=== PATIENT | male | born 1995 | race African-American/Black ===

== ENCOUNTER 2019-08-21 14:49 | Emergency (ER) | payer OTHER ==
[2019-08-21] MEDS ORDERED: 0.9 % SODIUM CHLORIDE 1,000 ML BAG IV ONE (15:18)
[2019-08-21] MEDS ORDERED: PROCHLORPERAZINE 10 MG/2 ML VIAL IVP ONE (15:18)
[2019-08-21] MEDS ORDERED: DIPHENHYDRAMINE HCL 50 MG/ML VIAL IVP ONE (15:18)
[2019-08-21] MEDS ORDERED: KETOROLAC 30 MG/ML VIAL IVP ONE (15:18)
--- NOTE | 2019-08-21 15:24 | Emergency Department Record ---
History of Present Illness - General Chief Complaint: Headache Migraine Stated Complaint: MIGRAINE Time Seen by Provider: 08/21/19 15:09 Source: Patient, Family Mode of Arrival: Ambulatory Limitations: No limitations (Girlfriend/S.O.) - History of Present Illness Initial Comments: Pt to ED with complaint of a right sided headache for 7 days. Pain is located over right temporal area and associated with nausea without vomiting. He has no change in vision or weakness. No fever or illness, no travel, no new meds. Denies drug or alcohol, non smoker. In general good health without hx of frequent headaches. Was seen in Urgent Care and given IM Toradol and "something else" and "felt better for one day and SENIOR returned. Seen At [facility] ED and given IV meds with relief and sent home. SENIOR returned. No testing or imaging done to this point. SENIOR continues. Pt works for [employer] and is off due to Strike at this time. Onset/Timin -: Week(s) Onset Description: Gradual Location: Right, Temporal Severity: Moderate Quality: Aching, Throbbing Consistency: Constant Improves With: Nothing Worsens With: None Treatments Prior to Arrival: Prescription analgesic - Related Data Home Medications Medication Instructions Recorded Confirmed Last Taken Metoclopramide HCl [Reglan] 5 mg PO ASDIR 08/21/19 08/21/19 08/21/19 Ondansetron HCl [Zofran] 4 mg PO ASDIR 08/21/19 08/21/19 08/21/19 Previous Rx's Medication Instructions Recorded Cetirizine HCl/Pseudoephedrine 1 each PO BID PRN 10 Days #30 08/21/19 [Zyrtec-D Tablet] tab.er.12h Fluticasone Propionate [Flonase] 2 spray EACH NARES DAILY 7 Days #1 08/21/19 bottle Allergies Allergy/AdvReac Type Severity Reaction Status Date / Time No Known Drug Allergies Allergy Verified 08/21/19 14:59 Travel Screening - Travel/Exposure Within Last 30 Days Have you traveled within the last 30 days?: No - Travel/Exposure Within Last Year Have you traveled outside the [place] in the last year?: No - Additonal Travel Details Have you been exposed to anyone with a communicable illness?: No - Travel Symptoms Symptom Screening: None Review of Systems Constitutional: Denies: Chills, Fever, Night sweats Eyes: Denies: Eye discharge, Vision change ENT: Denies: Congestion, Ear pain, Throat pain Respiratory: Denies: Cough, Dyspnea Cardiovascular: Denies: Arrhythmia, Chest pain, Syncope Endocrine: Denies: Fatigue Gastrointestinal: Reports: Nausea. Denies: Abdominal pain, Diarrhea, Vomiting Genitourinary: Denies: Dysuria Musculoskeletal: Denies: Back pain Skin: Denies: Bruising, Rash Neurological: Reports: As per HPI Psychiatric: Denies: Anxiety, Suicidal thoughts Hematological/Lymphatic: Denies: Anemia Past Medical History - SOCIAL HISTORY Smoking Status: Never smoker Alcohol Use: None Drug Use: None - RESPIRATORY Hx Respiratory Disorders: No - CARDIOVASCULAR Hx Cardio Disorders: No - NEURO Hx Neuro Disorders: No - GI Hx GI Disorders: No - Hx Genitourinary Disorders: No - ENDOCRINE Hx Endocrine Disorders: No - MUSCULOSKELETAL Hx Musculoskeletal Disorders: No - PSYCH Hx Psych Problems: No - HEMATOLOGY/ONCOLOGY Hx Hematology/Oncology Disorders: No Family Medical History Any Significant Family History?: No Physical Exam - General General Appearance: Alert, Oriented x3, Cooperative, Moderate distress - Head Head exam: Atraumatic, Normal inspection - Eye Eye exam: Normal appearance, PERRL, EOMI - ENT ENT exam: Mucous membranes moist, Normal orophraynx, TM's normal bilaterally Ear exam: Normal external inspection Nasal Exam: Normal inspection Mouth exam: Normal external inspection - Neck Neck exam: Normal inspection, Full ROM. negative: Lymphadenopathy, Meningismus, Tenderness, Thyromegaly - Respiratory Respiratory exam: Normal lung sounds bilaterally. negative: Respiratory distress, Rhonchi, Wheezes - Cardiovascular Cardiovascular Exam: Regular rate, Normal rhythm, Normal heart sounds. negative: Tachycardia Peripheral Pulses: 2+: Radial (R), Radial (L) - GI/Abdominal GI/Abdominal exam: Soft, Normal bowel sounds. negative: Distended, Rigid, Tenderness - Extremities Extremities exam: Normal inspection. negative: Calf tenderness, Full ROM, Pedal edema, Tenderness - Back Back exam: Reports: Normal inspection. Denies: Paraspinal tenderness - Neurological Neurological exam: Alert, CN II-XII intact, Normal gait, Oriented X3 - Psychiatric Psychiatric exam: Normal affect, Normal mood - Skin Skin exam: Normal color. negative: Rash Course - Reevaluation(s) Reevaluation #1: 08/21/19 15:26 temporal recurrent- persistent SENIOR without evaluation. Will treat with IV meds and get lab and CT. Reevaluation #2: 08/21/19 16:42 CT Brain neg...only showing left frontal and maxillary sinusitis...SENIOR was right sided. At this time his SENIOR is resolved. He is up and walked to rest room with my escort. His gait is stable. Labs all normal with ESR 1. Due to the recurrent nature of his HAs and the migraine pattern Decadron 10mg given IV. Plan will be fore sinusitis treatments and referral to family doctor. Pt comfortable with plan. Medical Decision Making - Lab Data Result diagrams: 08/21/19 15:40 08/21/19 15:40 Disposition Disposition: Discharge Clinical Impression: Migraine Qualifiers: Status migrainosus presence: without status migrainosus Intractability: not intractable Sinusitis Qualifiers: Sinusitis location: maxillary Chronicity: acute Recurrence: non-recurrent Qualified Code(s): J01.00 - Acute maxillary sinusitis, unspecified Disposition: Home, Self-Care Condition: (2) Stable Instructions: Migraine Headache (ED), Sinusitis (ED) Additional Instructions: Rest Do Not drive today with meds. Take sinus meds and Flonase as instructed. Take Tylenol or Advil as needed for pain. Return to the ED at any time if worse or concerns See Dr. Jones in 1-2 days. Prescriptions: Fluticasone Propionate [Flonase] 2 spray EACH NARES DAILY 7 Days #1 bottle Cetirizine HCl/Pseudoephedrine [Zyrtec-D Tablet] 1 each PO BID PRN 10 Days #30 tab.er.12h PRN Reason: Pain - Mod To Severe (5-10) Referrals: NATHAN JONES M.D. [MEDICAL DOCTOR] - Forms: Patient Portal Access Time of Disposition: 16:49 Quality - Quality Measures Quality Measures: N/A, Headache (All Ages) - Headache: Neuroimaging Quality Measure: Measure #419: Overuse of Neuroimaging Neurological Exam: Patient had a normal neurological exam. [G9535] Headache: Use of Neuroimaging: CTA, CT, MRA or MRI Ordered [G9538] Medical Reason for Exam: Recent Onset of Severe Headache, Very Young w/Unexplained Headache Symptoms - Blood Pressure Screening Does Patient Have Any of the Following: No Blood Pressure Classification: Hypertensive Reading Systolic Measurement: 150 Diastolic Measurement: 101 Screening for High Blood Pressure: < Pre-Hypertensive BP, F/U Documented > [G8950] Pre-Hypertensive Follow-up Interventions: Follow-up with rescreen every year.
[2019-08-21 15:54] LABS: ABSOLUTE NEUTROPHIL COUNT 4.51; BASO % 0.6 % (0-6); EOS % 2.3 % (0-6); GRAN % 54.6 % (47-80); HEMATOCRIT 46.9 % (42.0-52.0); HEMOGLOBIN 15.3 gm/dl (14.0-18.0); LYMPH % 34.5 % (16-45); MEAN CELL VOLUME 85.7 fl (81-97); MEAN CORPUSCULAR HGB CONC 32.6 g/dl (32-36); MEAN PLATELET VOLUME 9.9 fl (7.4-10.4); PLATELET COUNT 238 K/uL (130-400); RED BLOOD COUNT 5.47 M/uL (4.40-5.70); WHITE BLOOD COUNT W/O DIFF 8.3 K/uL (4.2-12.2)
[2019-08-21 16:07] LABS: BLOOD UREA NITROGEN 20 mg/dL (6-20); EST GLOMERULAR FILTRATION RATE > 60 mL/min
[2019-08-21 16:10] LABS: GLUCOSE,RANDOM 83 mg/dL (74-109)
[2019-08-21] MEDS ORDERED: DEXAMETHASONE SOD PHOSPHATE 10MG/ML VIAL IVP ONE (16:25)
[2019-08-21 16:40] LABS: ERYTHROCYTE SEDIMENTATION RATE 1 mm/hr (0-15)
--- NOTE | 2019-08-23 14:52 | CT SCAN REPORT ---
EXAM: HEAD CT WITHOUT IV CONTRAST HISTORY: THIS IS A 24-YEAR-OLD MALE WITH HEADACHE FOR ONE WEEK, LIGHT SENSITIVITY. NO KNOWN INJURY. TECHNIQUE: CT of the head without IV contrast was obtained with reconstruction of coronal and sagittal planes. Comparison: Nor prior exams available for comparison. FINDINGS: No acute intracranial hemorrhage, midline shift, or mass effect is identified. No suspicious extraaxial fluid collections or ventricular enlargement. The kessler white matter interface appears preserved. No suspicious areas of decreased attenuation, atrophy or encephalomalacia. Large consolidations are present involving the right frontal lobe extending into portions of the right ethmoid sinuses. The remainder of the paranasal sinuses appear well aerated as well as the mastoid air cells. No acute displaced fracture identified. The ocular globes appear symmetric and intact. Minimal adenoid prominent noted. IMPRESSION: 1. NO ACUTE INTRACRANIAL HEMORRHAGE, MIDLINE SHIFT OR MASS EFFECT. 2. RIGHT FRONTAL GREATER THAN RIGHT ETHMOID CONSOLIDATIONS AND SINUSITIS. JOB NUMBER: [id number] MTDD
== END 2019-08-21 17:12 | disposition home or self-care (01) ==
LOC: ER 14:49
DX: G43.909 Migraine, unspecified, not intractable, without status migrainosus (principal); J01.10 Acute frontal sinusitis, unspecified; J01.00 Acute maxillary sinusitis, unspecified; R11.0 Nausea
CPT/HCPCS: 70450; 80048; 85025; 85651; 96374; 96375; 99284; J0780; J1200; J1885; J7030